=== PATIENT | female | born 1990 | race Caucasian/White ===

== ENCOUNTER 2019-06-27 11:15 | Emergency (ER) | payer SELFPAY ==
[2019-06-27 11:58] VITALS: BP 130/87
--- NOTE | 2019-06-27 12:25 | UC ---
UC General HPI - HPI Summary HPI Summary: Day 4 cough, congestion, fever as high as 102.3, sore throat, headache, cough producing brown phlegm, shortness of breath with cough and wakes pt. from her sleep, back pain, sensitive skin. - History of Current Complaint Chief Complaint: UCGeneralIllness Stated Complaint: COUGH,THROAT,FEVER,CHILLS Hx Obtained From: Patient Hx Last Menstrual Period: iud Onset/Duration: Sudden Onset, Lasting Days Onset Severity: Moderate Current Severity: Moderate Pain Intensity: 5 Associated Signs & Symptoms: Positive: Cough, Fever, Headache - Allergy/Home Medications Allergies/Adverse Reactions: Allergies Allergy/AdvReac Type Severity Reaction Status Date / Time oxycodone Allergy Mild Itching Verified 06/27/19 11:48 Home Medications: Home Medications Dm/PE/Acetaminophen/Chlorphenr [[place] Plus Cold &] 2 cap PO Q4H PRN 06/27 [History Confirmed 06/27/19] Ibuprofen TAB* [Advil TAB*] 200 mg PO Q6H PRN 06/27/19 [History Confirmed ] Iud 1 udc VAGINAL ONCE 06/27/19 [History Confirmed 06/27/19] Phenylephrine/Dm/Acetaminop/GG [Mucinex Fast-Max Cold-Flu Cap] 1 each PO Q12H PRN 06/27/19 [History Confirmed 06/27/19] PMH/Surg Hx/FS Hx/Imm Hx Previously Healthy: Yes - Surgical History Surgical History: Yes Surgery Procedure, Year, and Place: right knee surgery d/t septic joint - I & D - Family History Known Family History: Positive: Hypertension - Social History Alcohol Use: Occasionally Substance Use Type: None Smoking Status (MU): Never Smoked Tobacco Review of Systems All Other Systems Reviewed And Are Negative: Yes Constitutional: Positive: Fatigue ENT: Positive: Sore Throat, Ear Ache, Nasal Discharge, Sinus Congestion Respiratory: Positive: Cough Musculoskeletal: Positive: Myalgia Neurological: Positive: Headache Is Patient Immunocompromised?: No Physical Exam Appearance: Well-Nourished, Ill-Appearing, Pain Distress Vital Signs: Initial Vital Signs Temp 99.2 F 06/27/19 11:52 Pulse 103 06/27/19 11:52 Resp 20 06/27/19 11:52 BP 130/87 06/27/19 11:52 Pulse Ox 99 01/01/20 11:52 Vital Signs Reviewed: Yes Eye Exam: Normal Eyes: Positive: Conjunctiva Inflamed ENT: Positive: Pharyngeal erythema, TMs normal Dental Exam: Normal Respiratory Exam: Normal Respiratory: Positive: Respiratory distress - mild, Decreased breath sounds, Rhonchi, Wheezing, Inspiration Cardiovascular Exam: Normal Cardiovascular: Positive: RRR, No Murmur, Pulses Normal Abdominal Exam: Normal Musculoskeletal Exam: Normal Neurological Exam: Normal Psychological Exam: Normal Skin Exam: Normal Course/Dx - Course Course Of Treatment: hx obtained, exam performed ,meds reviewed, - Diagnoses Provider Diagnosis: Influenza A Discharge ED - Sign-Out/Discharge Documenting (check all that apply): Patient Departure All imaging exams completed and their final reports reviewed: No Studies - Discharge Plan Condition: Stable Disposition: HOME Patient Education Materials: Influenza (ED) Forms: *Work Release Referrals: Alana Flores MD [Primary Care Provider] - Additional Instructions: 1. take the medication as prescribed. 2. INcrease fluids and get plenty of rest 3. Use Ibuprofen for pain and fever. 4. I have taken you out of work for the next few days 5. FOllow up as needed. - Billing Disposition and Condition Condition: STABLE Disposition: Home
[2019-06-27 12:55] LABS: Influenza A Molecular POSITIVE (Negative)
[2019-06-27] MEDS ORDERED: Albuterol 2.5 MG/3 ML NEB.SOL* (0.083%) INH ONE (13:01)
== END 2019-06-27 13:26 | disposition home or self-care (01) ==
LOC: UCCORT 11:15
DX: J11.1 Influenza due to unidentified influenza virus with other respiratory manifestations (principal); Z88.5 Allergy status to narcotic agent
CPT/HCPCS: 87651; 99212; G0463

== ENCOUNTER 2019-08-15 08:36 | Emergency (ER) | payer SELFPAY ==
[2019-08-15 08:54] VITALS: BP 119/76
--- NOTE | 2019-08-15 09:03 | UC ---
Respiratory Complaint HPI - HPI Summary HPI Summary: cough x 1 week chest congestion, runny nose / sore throat, denies any fever, no chills, no body aches symptoms has improved and feeling well now , needs a noted to return back to school - History of Current Complaint Chief Complaint: UCGeneralIllness Stated Complaint: SCHOOL NOTE Time Seen by Provider: 08/15/19 08:56 Hx Obtained From: Patient Hx Last Menstrual Period: 08/15/19 ?: No Onset/Duration: Gradual Onset, Lasting Days - 7, Resolved Timing: Constant Severity Initially: Moderate Severity Currently: None Pain Intensity: 0 Character: Cough: Nonproductive Aggravating Factors: Nothing Alleviating Factors: Nothing Associated Signs And Symptoms: Positive: URI, Nasal Congestion. Negative: Fever , Chills - Allergies/Home Medications Allergies/Adverse Reactions: Allergies Allergy/AdvReac Type Severity Reaction Status Date / Time oxycodone Allergy Mild Itching Verified 08/15/19 08:55 Home Medications: Home Medications NK [No Home Medications Reported] 08/15/19 [History Confirmed 08/15/19] PMH/Surg Hx/FS Hx/Imm Hx Previously Healthy: Yes - Surgical History Surgical History: Yes Surgery Procedure, Year, and Place: right knee surgery d/t septic joint - I & D - Family History Known Family History: Positive: Hypertension - Social History Alcohol Use: Occasionally Substance Use Type: None Smoking Status (MU): Never Smoked Tobacco Review of Systems All Other Systems Reviewed And Are Negative: Yes Is Patient Immunocompromised?: No Physical Exam Triage Information Reviewed: Yes Appearance: Well-Appearing, No Pain Distress, Well-Nourished Vital Signs: Initial Vital Signs Temp 98.8 F 08/15/19 08:50 Pulse 97 08/15/19 08:50 Resp 14 08/15/19 08:50 BP 119/76 08/15/19 08:50 Pulse Ox 97 08/15/19 08:50 Vital Signs Reviewed: Yes Eye Exam: Normal Eyes: Positive: Conjunctiva Clear ENT: Positive: Normal ENT inspection, Hearing grossly normal, Pharynx normal Neck: Positive: Supple, Nontender, No Lymphadenopathy Respiratory: Positive: Chest non-tender, Lungs clear, Normal breath sounds Cardiovascular: Positive: RRR, No Murmur, Pulses Normal Respiratory Course/Dx - Differential Dx/Diagnosis Provider Diagnosis: Viral illness Discharge ED - Sign-Out/Discharge Documenting (check all that apply): Patient Departure All imaging exams completed and their final reports reviewed: No Studies - Discharge Plan Condition: Stable Disposition: HOME Patient Education Materials: Viral Syndrome (ED) Forms: *Work Release Referrals: Alana Flores MD [Primary Care Provider] - If Needed - Billing Disposition and Condition Condition: STABLE Disposition: Home
== END 2019-08-15 09:08 | disposition home or self-care (01) ==
LOC: UCCORT 08:36
DX: B34.9 Viral infection, unspecified (principal); R09.81 Nasal congestion; R09.89 Other specified symptoms and signs involving the circulatory and respiratory systems; Z88.5 Allergy status to narcotic agent
CPT/HCPCS: 99211; G0463